=== PATIENT | male | born 1985 ===

== ENCOUNTER 2018-07-04 05:46 | Day surgery (SDC) | payer OTHER ==
[~2018-07-04] VITALS: Ht 182.9 cm; Wt 86.2 kg
[2018-07-04] VITALS (9 sets, daily range): BP systolic 106–128; BP diastolic 49–88
[~2018-07-04 05:46] MED LIST: NO HOME MEDS; ceFAZolin 2gm in dextrose, iso 100 ML IV ONE; famotidine 20mg tablet PO ONE; ringers solution, lacted 1,000 ML IV SCH
[2018-07-04] MEDS ORDERED: LIDOcaine 1% (10mg/ml) 2ml vial ONE (06:21)
[2018-07-04] MEDS ORDERED: ceFAZolin 1000mg inj ONE (07:53)
[2018-07-04] MEDS ORDERED: BUPIVAcaine/PF 2.5mg/ml (0.25%) 10ml vial ONE (07:54)
[2018-07-04] MEDS ORDERED: MIDAZolam 5mg/5ml vial ONE (08:14)
[2018-07-04] MEDS ORDERED: fentaNYL/PF 50MCG/1 ML 2ML syringe ONE (08:14)
[2018-07-04] MEDS ORDERED: propofol inj 20 ML IV ONE (08:15)
[2018-07-04] MEDS ORDERED: sevoflurane 250ml liquid IH ONE (08:34)
[2018-07-04] MEDS ORDERED: ringers solution, lacted 1,000 ML IV SCH (09:24)
[2018-07-04] MEDS ORDERED: meperidine/PF 25mg/ml syringe IV PRN ×3 (09:25)
[2018-07-04] MEDS ORDERED: proCHLORperazine 10 MG/2 ml inj IV PRN (09:25)
[2018-07-04] MEDS ORDERED: morphine 4 MG/ML inj SYRINge IV PRN ×2 (09:25)
[2018-07-04] MEDS ORDERED: ondansetron/PF 4mg/2ml inj IV PRN (09:25)
[2018-07-04] MEDS ORDERED: dexamethasone sod phosphate 4mg/ml inj. ONE (11:05)
[2018-07-04] MEDS ORDERED: ROPIVAcaine 0.5% (5mg/ml) 30ml vial ONE (11:05)
--- NOTE | 2018-07-04 11:10 | NUR ---
Received from OR via BED, accompanied by Anesthesiologist DR COLLADO-- and report given by Anesthesiolgist. PATIENT A&OX4, DENIES PAIN, V/S WNL, NEUROVASCULAR CHECKS INTACT, 20G PIV LUE, SCD ON, DRESSING TO RIGHT SHOULDER CDI
--- NOTE | 2018-07-04 12:20 | NUR ---
PATIENT A&OX4, DENIES PAIN, V/S WNL, NEUROVASCULAR CHECKS INTACT, 20G PIV LUE D/C, SCD OFF, DRESSING TO RIGHT SHOULDER CDI. DRESSING TO RIGHT SHOULDER CDI.. I HAVE REVIEWED D/C INSTRUCTIONS WITH PATIENT AND GUARDS AND THEY HAVE VERBALIZED UNDERSTANDING. PATIENT D/C WITH ALL BELONGINGS AND GUARDS GAVE TRANSPORT BACK TO [facility]
== END 2018-07-04 12:20 ==
LOC: PAS 05:46 → EEVIPCON 08:30 → PAS 12:20
PROVIDERS: ATTEND Orthopaedic Surgery
DX: S43.101A Unspecified dislocation of right acromioclavicular joint, initial encounter (principal); X58.XXXA Exposure to other specified factors, initial encounter; Y93.89 Activity, other specified; Y92.89 Other specified places as the place of occurrence of the external cause; Y99.8 Other external cause status; Z98.890 Other specified postprocedural states
CPT/HCPCS: 23552; 82948; C1713; J0690; J1100; J2250; J2704; J3010; J3490; A4565; A7000; J2795; J7120